=== PATIENT | male | born 1995 | race African-American/Black ===

== ENCOUNTER 2017-04-03 10:06 | Emergency (ER) | payer OTHER ==
[~2017-04-03] VITALS: Ht 170.2 cm; Wt 117.5 kg
[2017-04-03 10:20] VITALS: BP 160/77
[2017-04-03] MEDS ORDERED: CARBAMIDE PEROXIDE 6.5% OTIC SOLUTION 15ML BOTTLE. AD ONE (10:45)
--- NOTE | 2017-04-03 10:49 | PHYS DOC ---
Past Medical History Past Medical History: No Pertinent History Past Surgical History: No Surgical History Alcohol Use: None Drug Use: None Adult General Chief Complaint Chief Complaint: EARACHE/EAR PAIN HPI HPI Patient is a 21 year old male presents to the emergency department with a history of right ear pain since Friday. Patient states he has taken Tylenol for the pain with some relief. He denies drainage or discharge from the site, he denies fever, chills or nausea and vomiting. He states his hearing is muffled. Review of Systems Review of Systems Constitutional: Denies fever or chills [] Eyes: Denies change in visual acuity, redness, or eye pain [] HENT: Denies nasal congestion or sore throat. C/o right ear pain and discomfort Respiratory: Denies cough or shortness of breath [] Cardiovascular: No additional information not addressed in HPI [] GI: Denies abdominal pain, nausea, vomiting, bloody stools or diarrhea [] : Denies dysuria or hematuria [] Musculoskeletal: Denies back pain or joint pain [] Integument: Denies rash or skin lesions [] Neurologic: Denies headache, focal weakness or sensory changes [] Endocrine: Denies polyuria or polydipsia [] Current Medications Current Medications Current Medications Medications (Trade) Dose Ordered Sig/Yaun Start Time Stop Time Status Last Admin Dose Admin Carbamide Peroxide (Debrox) 5 drop 1X ONCE 04/03/17 10:45 04/03/17 10:46 DC 04/03/17 10:48 5 DROP Allergies Allergies Allergies Coded Allergies Type Severity Reaction Last Updated Verified No Known Drug Allergies 04/03/17 No Physical Exam Physical Exam Constitutional: Well developed, well nourished, no acute distress, non-toxic appearance. [] HENT: Normocephalic, atraumatic, bilateral external ears normal, oropharynx moist, no oral exudates, nose normal. Unable to visualize the tympanic membrane on the right as it is cerumen impacted. Left tympanic membrane appears to be normal. Eyes: PERRLA, EOMI, conjunctiva normal, no discharge. [] Neck: Normal range of motion, no tenderness, supple, no stridor. [] Cardiovascular:Heart rate regular rhythm, no murmur [] Lungs & Thorax: Bilateral breath sounds clear to auscultation [] Skin: Warm, dry, no erythema, no rash. [] Back: No tenderness Extremities: No tenderness, no cyanosis, no clubbing, ROM intact, no edema. [] Neurologic: Alert and oriented X 3, normal motor function, normal sensory function, no focal deficits noted. [] Psychologic: Affect normal, judgement normal, mood normal. [] Current Patient Data Vital Signs Vital Signs Date Time Temp Pulse Resp B/P (MAP) Pulse Ox O2 Delivery O2 Flow Rate FiO2 04/03/17 10:20 99.4 94 14 98 Room Air 99.4 EKG EKG [] Radiology/Procedures Radiology/Procedures [] Course & Med Decision Making Course & Med Decision Making Pertinent Labs and Imaging studies reviewed. (See chart for details) Patient's area was irrigated with cerumen and cotton removed from the ear. Patient will be discharged home with recommendations to use Debrox and irrigation's at home. Also instructed patient not to use cotton balls or can't swabs in the ear. Patient will be discharged home in stable condition signs symptoms to return back to emergency department been provided. Tympanic membrane appears to be normal at this time on the right. [] Dragon Disclaimer Dragon Disclaimer This electronic medical record was generated, in whole or in part, using a voice recognition dictation system. Departure Departure Impression: Primary Impression: Impacted cerumen of right ear Disposition: 01 HOME, SELF-CARE Condition: STABLE Referrals: UNKNOWN PCP NAME (PCP) Patient Instructions: Cerumen Impaction Additional Instructions: Activity as tolerated. Tylenol or ibuprofen for pain or discomfort. You may obtain Debrox [id number] with an irrigation kit use this as directed. Follow-up primary care physician next 3-5 days. Return back to emergency prior signs symptoms of become worse. CHELSEY DAVIES [employer]ING [employer] April 03, 2017 10:49
== END 2017-04-03 12:10 | disposition home or self-care (01) ==
LOC: ER 10:06
DX: H61.21 Impacted cerumen, right ear (principal)
CPT/HCPCS: 69209; 99282